=== PATIENT | female | born 1970 | race Caucasian/White ===

== ENCOUNTER 2019-11-23 18:40 | Emergency (ER) | payer BC, OTHER, SELFPAY ==
--- NOTE | 2019-11-23 18:43 | ED.ALLEREA ---
HPI - Allergic Reaction General Chief complaint: Allergic Reaction Stated complaint: bee sting to face Time Seen by Provider: 11/23/19 18:43 Source: patient and RN notes reviewed History of Present Illness HPI narrative: Patient is a 48-year-old female who presents the urgent care with complaints of a bee sting to the left lower lip. Patient states she is now having both upper and lower lip swelling with right-sided facial swelling. Patient denies any shortness of breath, difficulty breathing, difficulty swallowing. Patient has not taken any meds prior to arrival for the interaction. Denies of any anaphylactic reaction in the past from bee sting or wasp sting. No other acute complaints. Patient is not having any acute distress and is speaking without difficulty. No other acute complaints. Patient aware of the plan of care. Some parts of this dictation were generated by voice recognition software and may contain typographical and/or grammatical inaccuracies. Related Data Allergies Allergy/AdvReac Type Severity Reaction Status Date / Time cephalexin [From Keflex] Allergy Rash Verified 11/23/19 18:52 Review of Systems Review of Systems: Narrative: CONSTITUTIONAL: Denies fever, chills, or sweats. EYES: Denies visual changes, redness, or discharge. ENT: Denies rhinorrhea, congestion, sore throat, or otalgia. Reports of upper and lower lip swelling and right-sided facial swelling CARDIOVASCULAR: Denies chest pain, palpitations, or edema. RESPIRATORY: Denies cough or dyspnea. GASTROINTESTINAL: Denies abdominal pain, nausea, vomiting, or diarrhea. GENITOURINARY: Denies dysuria or hematuria. SKIN: Denies rash or itching. MUSCULOSKELETAL: Denies back pain, joint pain, or myalgia. NEUROLOGIC: Denies headache, numbness, or weakness. All other systems reviewed are negative, except as documented in HPI. PMFSH Comments At the time of my signature, I reviewed and agree with the nursing past medical, surgical, social, and family history. There is no relevant family history pertinent to the patient complaint. Exam Narrative: Exam Narrative: GENERAL: This is a well-nourished, well-developed patient, in no apparent distress. HEAD: normocephalic, atraumatic. EYES: PERRL. Sclera clear/white. Vision is grossly intact. EARS: External ears normal NOSE: External nose normal with no obvious nasal discharge, nares without redness, no rhinorrhea. THROAT: Mucous membranes moist, posterior pharynx clear. No signs of difficulty swallowing or airway obstruction NECK: Neck supple, non-tender without lymphadenopathy CARDIOVASCULAR: Regular rate and rhythm without murmurs, gallops, or rubs. RESPIRATORY: Clear to auscultation. Breath sounds equal bilaterally. No wheezes, rales, or rhonchi. SKIN: Mild to moderate edema noted to the left lower lip and mild right upper facial edema with mild erythema. Warm, intact with no suspicious lesions or rash, good texture and turgor. NEURO: awake, alert, and oriented to person, place and time. There were no obvious focal neurologic abnormalities. EXTREMITIES: No clubbing, cyanosis, or edema. Course Vital Signs Vital signs: Vital Signs Temperature 98.5 F 11/23/19 18:50 Pulse Rate 85 11/23/19 18:50 Respiratory Rate 16 11/23/19 18:50 Blood Pressure 122/78 11/23/19 18:50 Pulse Oximetry 100 11/23/19 18:50 Temperature 98.5 F 11/23/19 18:50 Pulse Rate 85 11/23/19 18:50 Respiratory Rate 16 11/23/19 18:50 Blood Pressure 122/78 11/23/19 18:50 Pulse Oximetry 100 11/23/19 18:50 Reviewed MDM - Allergic Reaction MDM Narrative Medical decision making narrative: Patient is aware that she was given a large dose of steroid in the clinic today and should start the steroid regimen tomorrow morning. Educated the patient on reasons to go to the emergency room which would include shortness of breath, chest pain, difficulty swallowing, difficulty breathing, increased swelling to the lips or any swelli
[2019-11-23 18:50] VITALS: BP 122/78; PULSE 85; RESP 16; TEMP 36.9; O2SAT 100
[2019-11-23] MEDS: diphenhydrAMINE HCl CAP 25 MG CAPSULE PO (18:53)
[2019-11-23] MEDS: FAMOTIDINE 20 MG TABLET PO (18:53)
[2019-11-23] MEDS: methylPREDNISolone ACETATE 80 MG/ML VIAL IM (18:54)
== END 2019-11-23 19:25 | disposition home or self-care (01) ==
PROVIDERS: Emergency Provider Nurse Practitioner Family
DX: T63.441A Toxic effect of venom of bees, accidental (unintentional), initial encounter (principal); I10 Essential (primary) hypertension
CPT/HCPCS: 96372; 99213; A9270; G0463; J1040

== ENCOUNTER 2022-02-09 12:37 | Emergency (ER) | payer BC, OTHER, SELFPAY ==
--- NOTE | 2022-02-09 12:40 | ED.URI ---
HPI - URI/Sore Throat General Chief Complaint: Upper Respiratory Infection Stated Complaint: cold flu Time Seen by Provider: 02/09/22 12:41 Source: patient and RN notes reviewed History of Present Illness HPI Narrative: patient is a 51-year-old female presents to the Urgent Care with complaints of sinus pressure, drainage, cough and headache. Patient states it started 3 days ago without any fever, nausea or vomiting. patient has been taking Robitussin, DayQuil, NyQuil and Valarie-Beeson.. Patient is concerned because the sinus drainage is green . No other acute complaints. No acute distress noted. Patient aware of the plan of care. Some parts of this dictation were generated by voice recognition software and may contain typographical and/or grammatical inaccuracies. Related Data Home Medications Medication Instructions Recorded Confirmed levothyroxine 25 mcg tablet mcg 02/09/22 02/09/22 Allergies Allergy/AdvReac Type Severity Reaction Status Date / Time cephalexin [From Keflex] Allergy Rash Verified 02/09/22 12:54 Review of Systems Review of Systems: CONSTITUTIONAL: Denies fever, chills, or sweats. EYES: Denies visual changes, redness, or discharge. ENT: Reports of sinus pressure, congestion, rhinorrhea postnasal drainage CARDIOVASCULAR: Denies chest pain, palpitations, or edema. RESPIRATORY: reports a persistent cough GASTROINTESTINAL: Denies abdominal pain, nausea, vomiting, or diarrhea. GENITOURINARY: Denies dysuria or hematuria. SKIN: Denies rash or itching. MUSCULOSKELETAL: Denies back pain, joint pain, or myalgia. NEUROLOGIC: Denies headache, numbness, or weakness. All other systems reviewed are negative, except as documented in HPI. PMFSH Comments At the time of my signature, I reviewed and agree with the nursing past medical, surgical, social, and family history. There is no relevant family history pertinent to the patient complaint. Exam Narrative: GENERAL: This is a well-nourished, well-developed patient, in no apparent distress. HEAD: normocephalic, atraumatic. EYES: PERRL. Sclera clear/white. Vision is grossly intact. EARS: External ears normal, auditory canals clear and without drainage, TMs normal without perforation. Hearing grossly intact. NOSE: External nose normal with no obvious nasal discharge. bilateral erythema nares with clear to yellow rhinorrhea THROAT: Mucous membranes moist, posterior pharynx clear. my cup of drainage NECK: Neck supple, non-tender without lymphadenopathy CARDIOVASCULAR: Regular rate and rhythm without murmurs, gallops, or rubs. RESPIRATORY: Clear to auscultation. Breath sounds equal bilaterally. No wheezes, rales, or rhonchi. SKIN: warm, intact with no suspicious lesions or rash, good texture and turgor. NEURO: awake, alert, and oriented to person, place and time. There were no obvious focal neurologic abnormalities. EXTREMITIES: No clubbing, cyanosis, or edema. Course Course Level of Care: Express Care Visit Vital Signs Vital signs: Vital Signs Temperature 97.5 F L 02/09/22 12:42 Pulse Rate 100 02/09/22 12:42 Respiratory Rate 16 02/09/22 12:42 Blood Pressure 103/68 02/09/22 12:42 Pulse Oximetry 100 02/09/22 12:42 Oxygen Delivery Room Air 02/09/22 12:42 Temperature 97.5 F L 02/09/22 12:42 Pulse Rate 100 02/09/22 12:42 Respiratory Rate 16 02/09/22 12:42 Blood Pressure 103/68 02/09/22 12:42 Pulse Oximetry 100 02/09/22 12:42 Oxygen Delivery Room Air 02/09/22 12:42 Reviewed MDM - URI/Sore Throat MDM Narrative Medical decision making narrative: advised patient take a daily antihistamine such as Claritin, Zyrtec. use Benadryl and Flonase prior to bedtime. Symptoms are consistent with typical sinusitis/ upper respiratory infection and antibiotics are not necessary at this time. Use a humidifier at night. May use Tylenol/ ibuprofen for headache or discomfort. Use the Tessalon Perles as needed for cough.
[2022-02-09 12:42] VITALS: BP 103/68; PULSE 100; RESP 16; TEMP 36.4; O2SAT 100
== END 2022-02-09 13:13 | disposition home or self-care (01) ==
PROVIDERS: Emergency Provider Nurse Practitioner Family; PCP Internal Medicine
DX: J32.9 Chronic sinusitis, unspecified (principal)
CPT/HCPCS: 99213; G0463

== ENCOUNTER 2022-03-06 15:58 | Emergency (ER) | payer BC, OTHER, SELFPAY ==
--- NOTE | ~2022-03-06 | XR_ITS ---
EXAMINATION: XR chest 2V DATE: 03/06/2022 16:42 INDICATION: Cough. TECHNIQUE: Frontal and lateral views of the chest were obtained. COMPARISON: None. FINDINGS: There is no pneumonia, pleural effusion, or pneumothorax. The heart size is normal. IMPRESSION: 1. No acute cardiopulmonary disease. Reviewed, dictated and finalized at location A. R STRIPPER
[2022-03-06 16:03] VITALS: BP 106/71; PULSE 80; RESP 16; TEMP 36.5; O2SAT 100
--- NOTE | 2022-03-06 16:30 | ED.GENADULT ---
HPI - General Adult General Chief complaint: Upper Respiratory Infection Stated complaint: Sore Throat/Cough Time Seen by Provider: 03/06/22 16:30 Source: patient Mode of arrival: ambulatory Limitations: no limitations History of Present Illness HPI narrative: 51-year-old female presents with complaint of cough, nasal congestion for 4 days. Reports shortness of breath with exertion today. History of asthma, using albuterol inhaler as prescribed. Afebrile. No other complaints today. All Systems reviewed and negative except as noted above. Related Data Home Medications Medication Instructions Recorded Confirmed levothyroxine 25 mcg tablet 25 mcg PO DAILY 02/09/22 03/06/22 albuterol sulfate 90 mcg/actuation 2 puff inhalation Q4-6H PRN 03/06/22 03/06/22 aerosol inhaler Shortness Of Breath alprazolam 0.5 mg tablet 0.5 mg PO BID PRN Anxiety 03/06/22 03/06/22 celecoxib 200 mg capsule 200 mg PO DAILY 03/06/22 03/06/22 dextroamphetamine-amphetamine 20 20 mg PO BID 03/06/22 03/06/22 mg tablet estradiol 10 mcg vaginal tablet 10 mcg vaginal 2XW 03/06/22 03/06/22 (Vagifem) felodipine 2.5 mg tablet,extended 2.5 mg PO DAILY 03/06/22 03/06/22 release 24 hr hydrocodone 7.5 mg-acetaminophen 1 tablet PO BID PRN Pain 03/06/22 03/06/22 325 mg tablet Allergies Allergy/AdvReac Type Severity Reaction Status Date / Time cephalexin [From Keflex] Allergy Rash Verified 03/06/22 16:15 Review of Systems Review of Systems: CONSTITUTIONAL: Denies fever, chills, or sweats. EYES: Denies visual changes, redness, or discharge. ENT: reports rhinorrhea, congestion. Denies sore throat, or otalgia. CARDIOVASCULAR: Denies chest pain, palpitations, or edema. RESPIRATORY: reports cough and dyspnea with exertion. GASTROINTESTINAL: Denies abdominal pain, nausea, vomiting, or diarrhea. GENITOURINARY: Denies dysuria or hematuria. SKIN: Denies rash or itching. MUSCULOSKELETAL: Denies back pain, joint pain, or myalgia. NEUROLOGIC: Denies headache, numbness, or weakness. PSYCHIATRIC: Denies anxiety or depression. All other systems reviewed are negative, except as documented in HPI. PMFSH Comments At time of signature, agree with nursing past medical, surgical, social and family history. There is no relevant family history pertinent to the presenting complaint. Exam Narrative: GENERAL: This is a well-nourished, well-developed patient, in no apparent distress. HEAD: normocephalic, atraumatic. EYES: PERRL. Sclera clear/white. Vision is grossly intact. EARS: External ears normal, auditory canals clear and without drainage, TMs normal without perforation. Hearing grossly intact. NOSE: External nose normal with no obvious nasal discharge, nares without redness, no rhinorrhea. THROAT: Mucous membranes moist, posterior pharynx clear. NECK: Neck supple, non-tender without lymphadenopathy, masses or thyromegaly. CARDIOVASCULAR: Regular rate and rhythm without murmurs, gallops, or rubs. RESPIRATORY: decreased on expiration throughout all lung walters. Breath sounds equal bilaterally. No wheezes, rales, or rhonchi. SKIN: warm, Dry, intact with no suspicious lesions or rash, good texture and turgor. NEURO: awake, alert, and oriented to person, place and time. There were no obvious focal neurologic abnormalities. EXTREMITIES: No joint tenderness, effusion, or edema noted. Course Course Level of Care: Express Care Visit Vital Signs Vital signs: Vital Signs Temperature 36.5 C 03/06/22 16:03 Pulse Rate 80 03/06/22 16:03 Respiratory Rate 16 03/06/22 16:03 Blood Pressure 106/71 03/06/22 16:03 Pulse Oximetry 100 03/06/22 16:03 Oxygen Delivery Room Air 03/06/22 16:03 Temperature 36.5 C 03/06/22 16:03 Pulse Rate 80 03/06/22 16:03 Respiratory Rate 16 03/06/22 16:03 Blood Pressure 106/71 03/06/22 16:03 Pulse Oximetry 100 03/06/22 16:03 Oxygen Delivery Room Air 03/06/22 16:03 Reviewed Medical [facility]
== END 2022-03-06 17:08 | disposition home or self-care (01) ==
PROVIDERS: Emergency Provider Nurse Practitioner Family; PCP Internal Medicine
DX: J06.9 Acute upper respiratory infection, unspecified (principal); J45.909 Unspecified asthma, uncomplicated; I10 Essential (primary) hypertension; E03.9 Hypothyroidism, unspecified; F90.9 Attention-deficit hyperactivity disorder, unspecified type
CPT/HCPCS: 71046; 99213; G0463

== ENCOUNTER 2022-07-23 16:10 | Emergency (ER) | payer BC, OTHER, SELFPAY ==
--- NOTE | ~2022-07-23 | XR_ITS ---
EXAMINATION: XR chest 2V DATE: 07/23/2022 16:42 INDICATION: Cough TECHNIQUE: PA and lateral views of the chest are obtained. COMPARISON: 03/06/2022 FINDINGS: The lungs are free of acute opacities. No pleural effusion or pneumothorax. The cardiomedia stinal silhouette is normal. There is mild thoracic spondylosis. Bilateral breast implants are noted. IMPRESSION: 1. No acute cardiopulmonary abnormality. Reviewed, dictated and finalized at location F.
[2022-07-23 16:15] VITALS: BP 117/76; PULSE 92; RESP 20; TEMP 36.8; O2SAT 99
--- NOTE | 2022-07-23 16:42 | ED.GENADULT ---
HPI - General Adult General Chief complaint: Upper Respiratory Infection Stated complaint: Cough Source: patient Mode of arrival: ambulatory Limitations: no limitations History of Present Illness HPI narrative: Patient presents for evaluation of cough for last 3 days. Cough is productive of green sputum. She denies any fever, chills, nausea, vomiting, shortness of breath. She is a former smoker. She states her grandkids recently had strep pharyngitis. She does have a sore throat. She has tried mucinex, cough drops and robitussin without improvement in her symptoms thereafter. She took a home COVID test last night which was negative. Related Data Home Medications Medication Instructions Recorded Confirmed levothyroxine 25 mcg tablet 25 mcg PO DAILY 02/09/22 07/23/22 albuterol sulfate 90 mcg/actuation 2 puff inhalation Q4-6H PRN 03/06/22 07/23/22 aerosol inhaler Shortness Of Breath alprazolam 0.5 mg tablet 0.5 mg PO BID PRN Anxiety 03/06/22 07/23/22 celecoxib 200 mg capsule 200 mg PO DAILY 03/06/22 07/23/22 dextroamphetamine-amphetamine 20 20 mg PO BID 03/06/22 07/23/22 mg tablet estradiol 10 mcg vaginal tablet 10 mcg vaginal 2XW 03/06/22 07/23/22 (Vagifem) felodipine 2.5 mg tablet,extended 2.5 mg PO DAILY 03/06/22 07/23/22 release 24 hr hydrocodone 7.5 mg-acetaminophen 1 tablet PO BID PRN Pain 03/06/22 07/23/22 325 mg tablet acyclovir 400 mg tablet 400 mg PO BID 07/23/22 07/23/22 metoprolol succinate 50 mg 50 mg PO DAILY 07/23/22 07/23/22 tablet,extended release 24 hr Allergies Allergy/AdvReac Type Severity Reaction Status Date / Time cephalexin [From [employer]] Allergy Rash Verified 07/23/22 16:20 Review of Systems Review of Systems: CONSTITUTIONAL: Denies fever, chills, or sweats. EYES: Denies visual changes, redness, or discharge. ENT: Reports sore throat. Denies rhinorrhea, congestion, or otalgia. CARDIOVASCULAR: Denies chest pain, palpitations, or edema. RESPIRATORY: Reports cough. Denies dyspnea. GASTROINTESTINAL: Denies abdominal pain, nausea, vomiting, or diarrhea. GENITOURINARY: Denies dysuria or hematuria. SKIN: Denies rash or itching. MUSCULOSKELETAL: Denies back pain, joint pain, or myalgia. NEUROLOGIC: Denies headache, numbness, dizziness, or weakness. PSYCHIATRIC: Denies anxiety or depression. PMFSH Past Medical History Medical History Anxiety Attention deficit Herpes simplex Hypertension Hypothyroidism Surgical History Surgical History No pertinent past surgical history Family History Family History Mother Family history non-contributory Social History Social History Smoking status: Former smoker Substance use: never Living arrangements: with family Gender identity (if verbalized by the patient): Female Sexual Orientation (if Verbalized by the Patient): Straight or Heterosexual Spiritual care concerns: No Exam Narrative: GENERAL: Well-appearing, well-nourished, and in no acute distress. HEAD: Normocephalic, atraumatic. EYES: PERRLA and EOMI. ENT: Nares clear, no rhinorrhea or epistaxis. Mucous membranes moist. Oropharynx without tonsillar hypertrophy exudate or other lesions. Bilateral TMs pearly leiva nonbulging NECK: Supple. No adenopathy or masses. No carotid bruits or JVD CHEST: Mild wheezing noted in posterior lung walters bilaterally HEART: Regular rate and rhythm. No murmur heard. Normal peripheral pulses. ABDOMEN: Soft, nontender, nondistended, normal active bowel sounds. EXTREMITIES: Normal range of motion. No edema. SKIN: Warm, dry, no rash. NEURO: No focal deficits. Alert and oriented x3. PSYCH: Normal mood and affect. Course Course Emergency Course: This is a 51-year-old female who presen
== END 2022-07-23 16:56 | disposition home or self-care (01) ==
PROVIDERS: Emergency Provider Nurse Practitioner; PCP Internal Medicine
DX: J06.9 Acute upper respiratory infection, unspecified (principal); I10 Essential (primary) hypertension; E03.9 Hypothyroidism, unspecified; F41.9 Anxiety disorder, unspecified; Z87.891 Personal history of nicotine dependence
CPT/HCPCS: 71046; 87081; 87880; 99213; G0463

== ENCOUNTER 2023-09-05 16:02 | Emergency (ER) | payer BC, OTHER, SELFPAY ==
[2023-09-05 16:07] VITALS: BP 105/68; PULSE 85; RESP 16; TEMP 36.7; O2SAT 100
--- NOTE | 2023-09-05 17:06 | ED.URI ---
HPI - URI/Sore Throat General Chief Complaint: Upper Respiratory Infection Stated Complaint: head / throat / ear Time Seen by Provider: 09/05/23 17:06 Source: patient, RN notes reviewed and old records reviewed Mode of arrival: ambulatory Limitations: no limitations History of Present Illness HPI Narrative: 52-year-old female to Express Care with complaint of headache, sore throat, right ear pain, and nonproductive cough for 2 days. Patient denies fever, nausea, vomiting, diarrhea, visual changes. Patient attempted to treat at home with Goody powder with some relief. Patient reports history of allergy to Keflex; denies other pertinent medical history. patient resting calmly in exam room in no acute distress. Respirations even and nonlabored. Patient able to speak in full sentences without difficulty. Patient able to tolerate fluids by mouth. Patient in no acute distress. Related Data Home Medications Medication Instructions Recorded Confirmed levothyroxine 25 mcg tablet 25 mcg PO DAILY 02/09/22 07/23/22 albuterol sulfate 90 mcg/actuation 2 puff inhalation Q4-6H PRN 03/06/22 07/23/22 aerosol inhaler Shortness Of Breath alprazolam 0.5 mg tablet 0.5 mg PO BID PRN Anxiety 03/06/22 07/23/22 celecoxib 200 mg capsule 200 mg PO DAILY 03/06/22 07/23/22 dextroamphetamine-amphetamine 20 20 mg PO BID 03/06/22 07/23/22 mg tablet estradiol 10 mcg vaginal tablet 10 mcg vaginal 2XW 03/06/22 07/23/22 (Vagifem) felodipine 2.5 mg tablet,extended 2.5 mg PO DAILY 03/06/22 07/23/22 release 24 hr metoprolol succinate 50 mg 50 mg PO DAILY 07/23/22 07/23/22 tablet,extended release 24 hr Allergies Allergy/AdvReac Type Severity Reaction Status Date / Time cephalexin [From Keflex] Allergy Rash Verified 09/05/23 17:51 Review of Systems Review of Systems: All systems reviewed & are unremarkable except as noted in HPI and below Constitutional: Constitutional: Reports as per HPI and Reports headache(s) Eyes: Eyes: Reports no additional eye complaints ENT: Reports as per HPI, Reports otalgia, Reports nasal congestion and Reports sore throat Cardiovascular: Cardiovascular: Reports no additional cardiovascular complaints, Denies chest pain and Denies dyspnea Respiratory: Respiratory: Reports no additional respiratory complaints, Reports cough and Denies dyspnea Musculoskeletal: Musculoskeletal: Reports no additional musculoskeletal complaints Neurologic: Reports system reviewed and no additional complaints, except as documented Psychiatric: Psychiatric: Reports no additional psychiatric complaints PMFSH Past Medical History Medical History Anxiety Attention deficit Herpes simplex Hypertension Hypothyroidism Surgical History Surgical History No pertinent past surgical history Family History Family History Mother Family history non-contributory Social History Social History Smoking status: Former smoker Substance use: never Living arrangements: with family Gender identity (if verbalized by the patient): Female Sexual Orientation (if Verbalized by the Patient): Straight or Heterosexual Spiritual care concerns: No Comments At the time of my signature, I reviewed and agree with the nursing past medical, surgical, social, and family history. There is no relevant family history pertinent to the patient complaint. Exam Const: General: cooperative, no acute distress, alert, tired appearing and well nourished Nutritional Appearance: well nourished Orientation/consciousness: patient oriented x3 Limitations: no limitations HENMT: Head: normal to inspection Ears: external ears normal and TM abnormal erythematous on the right, with fluid behind the TM on the right and with
== END 2023-09-05 17:22 | disposition home or self-care (01) ==
PROVIDERS: Emergency Provider Nurse Practitioner Family; PCP Internal Medicine
DX: H66.91 Otitis media, unspecified, right ear (principal); Z87.891 Personal history of nicotine dependence; I10 Essential (primary) hypertension; E03.9 Hypothyroidism, unspecified; F41.9 Anxiety disorder, unspecified
CPT/HCPCS: 99213; G0463